=== PATIENT | female | born 1950 | race African-American/Black ===

== ENCOUNTER 2016-12-31 09:37 | Inpatient (IN) | payer BC ==
[~2016-12-31] VITALS: Ht 167.6 cm; Wt 85.3 kg
[2016-12-31] MEDS ORDERED: AMLO5TAB4 PO (09:43)
[2016-12-31 10:55] LABS: HEMATOCRIT. 40.8 % (36.0-48.0); HEMOGLOBIN. 13.6 g/dL (12.0-16.0); MEAN CORPUSCULAR HEMOGLOBIN 26.8 pg (28.0-32.0); MEAN CORPUSCULAR VOLUME 80.2 fL (81.0-99.0); MEAN PLATELET VOLUME 8.5 fl (7.4-10.4); PLATELET 117 x1000/uL (130-400); RED BLOOD CELL COUNT 5.08 mill/uL (4.2-5.4); RED CELL DISTRIBUTION WIDTH 14.4 % (11.6-14.6)
[2016-12-31 11:01] LABS: CHLORIDE 93 mEq/L (98-107)
[2016-12-31 11:09] LABS: CARBON DIOXIDE 25 mEq/L (21-32)
[2016-12-31 11:58] LABS: PLATELET ESTIMATE SLIGHTLY DECREASED
[2016-12-31 12:55] LABS: CLARITY URINE CLOUDY (CLEAR); COLOR URINE DARK YELLOW (YELLOW); GLUCOSE URINE TRACE (NEGATIVE); KETONES URINE TRACE (NEGATIVE); LEUKOCYTE ESTERASE URINE 1+ (NEGATIVE); NITRITE URINE NEGATIVE (NEGATIVE); OCCULT BLOOD URINE 3+ (NEGATIVE); PROTEIN URINE 2+ (NEGATIVE); SPECIFIC GRAVITY URINE 1.024 (1.005-1.030)
[2016-12-31] MEDS ORDERED: SODIUM CHLORIDE 0.9% 1,000 ML IV ONE (14:24)
[2016-12-31] MEDS ORDERED: ACETAMINOPHEN 325MG TABLET PO NR (16:00)
[2016-12-31] MEDS ORDERED: DEXTROSE 50% WATER 50ML SYRINGE IV PRN (19:00)
[2016-12-31] MEDS ORDERED: DIPHENHYDRAMINE 50MG/ML VIAL IV PRN (19:00)
[2016-12-31] MEDS ORDERED: MAGNESIUM 2 G PREMIX 50 ML IV PRN (19:30)
[2016-12-31] MEDS ORDERED: SODIUM CHLORIDE 0.9% 1,000 ML IV SCH (19:30)
[2016-12-31] MEDS ORDERED: CEFTRIAXONE 1 G PREMIX 50 ML IV NR (19:33)
[2016-12-31] MEDS ORDERED: POTASSIUM CHLORIDE 20MEQ/PACKET PO NR (19:45)
[2016-12-31 19:55] LABS: CREATINE KINASE 237 IU/L (26-192)
[2016-12-31] MEDS ORDERED: POTASSIUM CHLORIDE INJ 40 MEQ in DEXT 5% WATER 250 ML IV NR (20:15)
[2016-12-31] MEDS ORDERED: HYDRALAZINE 20MG/ML VIAL IV PRN (20:15)
[2016-12-31] MEDS: MORPHINE SULFATE 2 MG/ML CPJ (NOT FOR IM USE) IV PRN (20:43)
[2016-12-31] MEDS: ONDANSETRON HCL 4MG/2ML VIAL IV PRN (20:44)
[2016-12-31] MEDS: CLONIDINE 0.1MG TABLET PO PRN (20:44)
[2017-01-01] VITALS (7 sets, daily range): BP systolic 128–174; BP diastolic 84–104
[2017-01-01] MEDS ORDERED: HYDR-523 PO (00:53)
[2017-01-01] MEDS ORDERED: ONDA4TAB5 PO (00:53)
[2017-01-01] MEDS ORDERED: P20 PO (00:53)
[2017-01-01] MEDS: ACETAMINOPHEN 325MG TABLET PO PRN (01:46)
[2017-01-01] MEDS ORDERED: METHYLPREDNISOLONE SOD SUCC 125 MG/2 ML VIAL IV NR (02:00)
[2017-01-01] MEDS ORDERED: CEFTRIAXONE 1 G PREMIX 50 ML IV SCH ×2 (03:00→23:00)
[2017-01-01] MEDS: MORPHINE SULFATE 2 MG/ML CPJ (NOT FOR IM USE) IV PRN ×2 (04:37→11:49)
[2017-01-01] MEDS: SODIUM CHLORIDE 0.9% 1,000 ML IV SCH ×4 (04:41→21:00)
[2017-01-01] MEDS: BLOOD SUGAR DIAGNOSTIC STRIP TEST SCH ×4 (06:26→20:56)
[2017-01-01] MEDS: INSULIN LISPRO 100 UNITS/ML SUBCUT SCH ×4 (06:28→21:07)
[2017-01-01 07:01] LABS: HEMATOCRIT. 37.6 % (36.0-48.0); HEMOGLOBIN. 12.6 g/dL (12.0-16.0); MEAN CORPUSCULAR HEMOGLOBIN 26.8 pg (28.0-32.0); MEAN CORPUSCULAR VOLUME 79.9 fL (81.0-99.0); MEAN PLATELET VOLUME 9.1 fl (7.4-10.4); PLATELET 81 x1000/uL (130-400); RED BLOOD CELL COUNT 4.71 mill/uL (4.2-5.4); RED CELL DISTRIBUTION WIDTH 14.2 % (11.6-14.6)
[2017-01-01] MEDS: PANTOPRAZOLE SODIUM 40 MG/VIAL IV SCH (08:52)
[2017-01-01] MEDS: POTASSIUM CHLORIDE 20MEQ TABLET SR PO SCH (08:52)
[2017-01-01] MEDS: AMLODIPINE 5MG TABLET PO SCH ×2 (08:55→21:00)
[2017-01-01 09:36] LABS: PLATELET ESTIMATE DECREASED
[2017-01-01 09:59] LABS: *AMPHETAMINES SCREEN URINE NEGATIVE (NEGATIVE); *BARBITURATES SCREEN URINE NEGATIVE (NEGATIVE); *BENZODIAZEPINES SCREEN URINE NEGATIVE (NEGATIVE); *COCAINE SCREEN URINE NEGATIVE (NEGATIVE); CANNABINOID URINE SCREEN NEGATIVE (NEGATIVE); METHADONE URINE SCREEN NEGATIVE (NEGATIVE); OPIATES URINE SCREEN PRESUMTIVE POSITIVE (NEGATIVE); PHENCYCLIDINE URINE SCREEN NEGATIVE (NEGATIVE)
[2017-01-01] MEDS ORDERED: POTASSIUM CHLORIDE 20MEQ TABLET SR PO SCH (10:00)
[2017-01-01] MEDS ORDERED: VANCOMYCIN 1500MG in DEXTROSE 5% WATER 250ML IV SCH (14:00)
[2017-01-01] MEDS: PIPERACILLIN/TAZ 3.375G PREMIX 50 ML IV SCH ×2 (14:35→21:00)
[2017-01-02] VITALS: BP 138/79
[2017-01-02] MEDS ORDERED: VANCOMYCIN 500 MG PREMIX 100 ML IV SCH (02:00)
[2017-01-02 04:02] VITALS: BP 144/96
[2017-01-02] MEDS: MORPHINE SULFATE 2 MG/ML CPJ (NOT FOR IM USE) IV PRN ×2 (04:04→16:34)
[2017-01-02] MEDS: PIPERACILLIN/TAZ 3.375G PREMIX 50 ML IV SCH ×3 (05:08→21:10)
[2017-01-02] MEDS: SODIUM CHLORIDE 0.9% 1,000 ML IV SCH ×2 (05:08→21:10)
[2017-01-02] MEDS: BLOOD SUGAR DIAGNOSTIC STRIP TEST SCH ×4 (06:39→21:04)
[2017-01-02] MEDS: INSULIN LISPRO 100 UNITS/ML SUBCUT SCH ×4 (06:45→21:00)
[2017-01-02 07:25] LABS: HEMOGLOBIN. 11.9 g/dL (12.0-16.0); MEAN CORPUSCULAR HEMOGLOBIN 26.1 pg (28.0-32.0); MEAN CORPUSCULAR VOLUME 79.2 fL (81.0-99.0); MEAN PLATELET VOLUME 9.8 fl (7.4-10.4); PLATELET 87 x1000/uL (130-400); RED BLOOD CELL COUNT 4.54 mill/uL (4.2-5.4); RED CELL DISTRIBUTION WIDTH 14.5 % (11.6-14.6)
[2017-01-02 07:43] LABS: CARBON DIOXIDE 22 mEq/L (21-32); CHLORIDE 104 mEq/L (98-107); T4 FREE 1.14 ng/dL (0.76-1.46)
[2017-01-02 08:00] VITALS: BP 143/87
[2017-01-02] MEDS: AMLODIPINE 5MG TABLET PO SCH ×2 (08:45→21:10)
[2017-01-02] MEDS: POTASSIUM CHLORIDE 20MEQ TABLET SR PO SCH (08:46)
[2017-01-02] MEDS: PANTOPRAZOLE SODIUM 40 MG/VIAL IV SCH (08:46)
[2017-01-02 12:00] VITALS: BP 129/92
[2017-01-02] MEDS: VANCOMYCIN 1 G PREMIX 200 ML IV SCH (13:37)
[2017-01-02 16:00] VITALS: BP 121/91
[2017-01-02 20:00] VITALS: BP 130/79
[2017-01-03] VITALS: BP 119/83
[2017-01-03 04:00] VITALS: BP 120/78
[2017-01-03] MEDS: PIPERACILLIN/TAZ 3.375G PREMIX 50 ML IV SCH ×3 (05:35→21:13)
[2017-01-03] MEDS: SODIUM CHLORIDE 0.9% 1,000 ML IV SCH ×3 (05:36→14:55)
[2017-01-03] MEDS: INSULIN LISPRO 100 UNITS/ML SUBCUT SCH ×4 (05:54→21:00)
[2017-01-03] MEDS: BLOOD SUGAR DIAGNOSTIC STRIP TEST SCH ×4 (05:54→21:03)
[2017-01-03] MEDS: MORPHINE SULFATE 2 MG/ML CPJ (NOT FOR IM USE) IV PRN (05:56)
[2017-01-03 06:58] LABS: HEMATOCRIT. 36.8 % (36.0-48.0); HEMOGLOBIN. 12.2 g/dL (12.0-16.0); MEAN CORPUSCULAR HEMOGLOBIN 26.1 pg (28.0-32.0); MEAN CORPUSCULAR VOLUME 79.1 fL (81.0-99.0); MEAN PLATELET VOLUME 9.3 fl (7.4-10.4); PLATELET 99 x1000/uL (130-400); RED BLOOD CELL COUNT 4.66 mill/uL (4.2-5.4); RED CELL DISTRIBUTION WIDTH 14.5 % (11.6-14.6)
[2017-01-03 08:00] VITALS: BP 119/78
[2017-01-03] MEDS: PANTOPRAZOLE SODIUM 40 MG/VIAL IV SCH (09:00)
[2017-01-03] MEDS: VANCOMYCIN 1 G PREMIX 200 ML IV SCH (09:00)
[2017-01-03] MEDS: AMLODIPINE 5MG TABLET PO SCH ×2 (09:01→21:13)
[2017-01-03] MEDS: POTASSIUM CHLORIDE 20MEQ TABLET SR PO SCH (09:01)
[2017-01-03] MEDS: ONDANSETRON HCL 4MG/2ML VIAL IV PRN (09:01)
[2017-01-03 12:00] VITALS: BP 128/83
[2017-01-03 16:00] VITALS: BP 120/76
[2017-01-03] MEDS ORDERED: GENTAMICIN 80MG PREMIX 100 ML IV SCH (16:00)
[2017-01-03] MEDS: GENTAMICIN 120MG PREMIX 100 ML IV SCH (17:31)
[2017-01-03] MEDS: ENOXAPARIN 40MG/0.4ML SYR SUBCUT SCH (17:32)
[2017-01-03] MEDS: LEVOFLOXACIN 250MG PREMIX 50 ML IV SCH (18:36)
[2017-01-03 20:00] VITALS: BP 129/93
[2017-01-03 20:02] LABS: PLATELET ESTIMATE DECREASED
[2017-01-04] VITALS: BP 106/76
[2017-01-04] MEDS: MORPHINE SULFATE 2 MG/ML CPJ (NOT FOR IM USE) IV PRN ×2 (02:05→17:28)
[2017-01-04 04:00] VITALS: BP 128/89
[2017-01-04] MEDS: PIPERACILLIN/TAZ 3.375G PREMIX 50 ML IV SCH ×2 (06:08→14:23)
[2017-01-04] MEDS: SODIUM CHLORIDE 0.9% 1,000 ML IV SCH (06:08)
[2017-01-04] MEDS: INSULIN LISPRO 100 UNITS/ML SUBCUT SCH ×4 (06:13→20:35)
[2017-01-04] MEDS: BLOOD SUGAR DIAGNOSTIC STRIP TEST SCH ×4 (06:13→20:35)
[2017-01-04 07:41] LABS: HEMATOCRIT. 38.7 % (36.0-48.0); HEMOGLOBIN. 12.6 g/dL (12.0-16.0); MEAN CORPUSCULAR HEMOGLOBIN 25.9 pg (28.0-32.0); MEAN CORPUSCULAR VOLUME 79.5 fL (81.0-99.0); MEAN PLATELET VOLUME 9.1 fl (7.4-10.4); PLATELET 111 x1000/uL (130-400); RED BLOOD CELL COUNT 4.86 mill/uL (4.2-5.4); RED CELL DISTRIBUTION WIDTH 14.9 % (11.6-14.6)
[2017-01-04 08:00] VITALS: BP 127/86
[2017-01-04 08:12] LABS: CARBON DIOXIDE 21 mEq/L (21-32); CHLORIDE 110 mEq/L (98-107)
[2017-01-04] MEDS: POTASSIUM CHLORIDE 20MEQ TABLET SR PO SCH (08:47)
[2017-01-04] MEDS: AMLODIPINE 5MG TABLET PO SCH ×2 (08:47→20:18)
[2017-01-04] MEDS: PANTOPRAZOLE SODIUM 40 MG/VIAL IV SCH (08:47)
[2017-01-04 12:00] VITALS: BP 127/81
[2017-01-04 13:05] LABS: PLATELET ESTIMATE DECREASED
[2017-01-04 14:19] LABS: NUCLEATED RED BLOOD CELLS 1 /100 WBC
[2017-01-04 14:20] LABS: PLATELET ESTIMATE SLIGHTLY DECREASED
[2017-01-04 16:00] VITALS: BP 133/86
[2017-01-04] MEDS ORDERED: BISACODYL 10MG SUPP PR NR (16:30)
[2017-01-04] MEDS ORDERED: LACTULOSE 20G/30ML UDC PO NR (16:30)
[2017-01-04] MEDS ORDERED: MEROPENEM 500 MG in SODIUM CHLORIDE 0.9% 50 ML IV SCH (17:00)
[2017-01-04] MEDS: ENOXAPARIN 40MG/0.4ML SYR SUBCUT SCH (17:27)
[2017-01-04] MEDS ORDERED: DIATR MEGLU/DIATRIZOATE SOLN 30ML PO NR ×2 (18:30→20:15)
[2017-01-04] MEDS: GENTAMICIN 120MG PREMIX 100 ML IV SCH (18:54)
[2017-01-04 20:00] VITALS: BP 121/93
[2017-01-04] MEDS: LEVOFLOXACIN 250MG PREMIX 50 ML IV SCH (20:19)
[2017-01-05] VITALS: BP 118/81
[2017-01-05] MEDS: SODIUM CHLORIDE 0.9% 1,000 ML IV SCH ×2 (02:17→21:21)
[2017-01-05 04:00] VITALS: BP 137/92
[2017-01-05] MEDS ORDERED: MEROPENEM 500 MG in SODIUM CHLORIDE 0.9% 50 ML IV SCH (05:00)
[2017-01-05] MEDS ORDERED: DIATR MEGLU/DIATRIZOATE SOLN 30ML PO NR (06:00)
[2017-01-05] MEDS: BLOOD SUGAR DIAGNOSTIC STRIP TEST SCH ×4 (06:50→21:00)
[2017-01-05] MEDS: INSULIN LISPRO 100 UNITS/ML SUBCUT SCH ×4 (06:50→21:00)
[2017-01-05 07:29] LABS: HEMATOCRIT. 39.4 % (36.0-48.0); HEMOGLOBIN. 12.7 g/dL (12.0-16.0); MEAN CORPUSCULAR HEMOGLOBIN 25.6 pg (28.0-32.0); MEAN CORPUSCULAR VOLUME 79.2 fL (81.0-99.0); MEAN PLATELET VOLUME 8.6 fl (7.4-10.4); PLATELET 125 x1000/uL (130-400); RED BLOOD CELL COUNT 4.98 mill/uL (4.2-5.4); RED CELL DISTRIBUTION WIDTH 14.9 % (11.6-14.6)
[2017-01-05 08:00] VITALS: BP 130/79
[2017-01-05] MEDS: POTASSIUM CHLORIDE 20MEQ TABLET SR PO SCH (08:19)
[2017-01-05] MEDS: AMLODIPINE 5MG TABLET PO SCH ×2 (08:19→20:02)
[2017-01-05] MEDS: PANTOPRAZOLE SODIUM 40 MG/VIAL IV SCH (08:19)
[2017-01-05] MEDS ORDERED: IOHEXOL-300 100 ML BOTTLE ONE (09:24)
[2017-01-05 12:00] VITALS: BP 132/87
[2017-01-05 13:36] LABS: PLATELET ESTIMATE SLIGHTLY DECREASED
[2017-01-05] MEDS: PIPERACILLIN/TAZ 3.375G PREMIX 50 ML IV SCH ×2 (14:42→21:20)
[2017-01-05 16:00] VITALS: BP 136/84
[2017-01-05] MEDS: ENOXAPARIN 40MG/0.4ML SYR SUBCUT SCH (17:46)
[2017-01-05] MEDS: ACETAMINOPHEN 325MG TABLET PO PRN ×2 (17:46→21:20)
[2017-01-05 19:59] VITALS: BP 107/73
[2017-01-06 00:28] VITALS: BP 116/82
[2017-01-06 01:36] LABS: GLUCOSE URINE NEGATIVE (NEGATIVE); KETONES URINE NEGATIVE (NEGATIVE); LEUKOCYTE ESTERASE URINE 1+ (NEGATIVE); NITRITE URINE NEGATIVE (NEGATIVE); OCCULT BLOOD URINE 2+ (NEGATIVE); PH URINE 5.5 (4.5-8.0); PROTEIN URINE TRACE (NEGATIVE); SPECIFIC GRAVITY URINE 1.026 (1.005-1.030); UROBILINOGEN URINE 0.2 E.U./dL (0.2-1.0)
[2017-01-06 02:07] LABS: CLARITY URINE SL HAZY (CLEAR); COLOR URINE YELLOW (YELLOW)
[2017-01-06] MEDS: PIPERACILLIN/TAZ 3.375G PREMIX 50 ML IV SCH ×4 (03:32→20:50)
[2017-01-06 04:00] VITALS: BP 120/80
[2017-01-06 05:32] LABS: PARTIAL THROMBOPLASTIN TIME 29.6 sec (23.4-31.0); PROTHROMBIN TIME 10.7 sec (9.4-11.6)
[2017-01-06 06:08] LABS: CHLORIDE 107 mEq/L (98-107)
[2017-01-06] MEDS: BLOOD SUGAR DIAGNOSTIC STRIP TEST SCH ×4 (06:11→20:48)
[2017-01-06] MEDS: INSULIN LISPRO 100 UNITS/ML SUBCUT SCH ×4 (06:11→20:47)
[2017-01-06 06:12] LABS: CARBON DIOXIDE 32 mEq/L (21-32)
[2017-01-06 08:00] VITALS: BP 143/96
[2017-01-06] MEDS: SODIUM CHLORIDE 0.9% 1,000 ML IV SCH (09:48)
[2017-01-06] MEDS: PANTOPRAZOLE SODIUM 40 MG/VIAL IV SCH (09:48)
[2017-01-06 09:49] LABS: HEMATOCRIT. 37.4 % (36.0-48.0); HEMOGLOBIN. 12.3 g/dL (12.0-16.0); MEAN CORPUSCULAR HEMOGLOBIN 25.7 pg (28.0-32.0); MEAN CORPUSCULAR VOLUME 78.5 fL (81.0-99.0); MEAN PLATELET VOLUME 8.1 fl (7.4-10.4); PLATELET 177 x1000/uL (130-400); RED BLOOD CELL COUNT 4.76 mill/uL (4.2-5.4); RED CELL DISTRIBUTION WIDTH 14.5 % (11.6-14.6)
[2017-01-06] MEDS: AMLODIPINE 5MG TABLET PO SCH ×2 (09:49→20:49)
[2017-01-06] MEDS: POTASSIUM CHLORIDE 20MEQ TABLET SR PO SCH (09:49)
[2017-01-06 12:00] VITALS: BP 130/82
[2017-01-06] MEDS: ACETAMINOPHEN 325MG TABLET PO PRN (13:18)
[2017-01-06] MEDS: CLOTRIMAZOLE 10MG TROCHE MM SCH ×2 (15:32→20:49)
[2017-01-06 16:00] VITALS: BP 120/72
[2017-01-06] MEDS: ENOXAPARIN 40MG/0.4ML SYR SUBCUT SCH (18:11)
[2017-01-06 20:00] VITALS: BP 122/79
[2017-01-07] VITALS: BP 136/84
[2017-01-07] MEDS: PIPERACILLIN/TAZ 3.375G PREMIX 50 ML IV SCH ×3 (02:47→14:28)
[2017-01-07] MEDS: ACETAMINOPHEN 325MG TABLET PO PRN ×2 (02:48→13:44)
[2017-01-07] MEDS: BLOOD SUGAR DIAGNOSTIC STRIP TEST SCH ×4 (05:38→20:53)
[2017-01-07 06:35] LABS: HEMATOCRIT. 34.4 % (36.0-48.0); HEMOGLOBIN. 11.3 g/dL (12.0-16.0); MEAN CORPUSCULAR HEMOGLOBIN 25.9 pg (28.0-32.0); MEAN CORPUSCULAR VOLUME 78.7 fL (81.0-99.0); MEAN PLATELET VOLUME 8.3 fl (7.4-10.4); PLATELET 206 x1000/uL (130-400); RED BLOOD CELL COUNT 4.37 mill/uL (4.2-5.4); RED CELL DISTRIBUTION WIDTH 14.5 % (11.6-14.6)
[2017-01-07] MEDS: INSULIN LISPRO 100 UNITS/ML SUBCUT SCH ×4 (06:36→20:53)
[2017-01-07 08:00] VITALS: BP 118/88
[2017-01-07] MEDS: PANTOPRAZOLE SODIUM 40 MG/VIAL IV SCH (08:30)
[2017-01-07] MEDS: ONDANSETRON HCL 4MG/2ML VIAL IV PRN (08:31)
[2017-01-07] MEDS: AMLODIPINE 5MG TABLET PO SCH ×2 (08:31→20:55)
[2017-01-07] MEDS: POTASSIUM CHLORIDE 20MEQ TABLET SR PO SCH (08:31)
[2017-01-07] MEDS: CLOTRIMAZOLE 10MG TROCHE MM SCH ×4 (08:31→20:55)
[2017-01-07 12:00] VITALS: BP 139/92
[2017-01-07 12:27] LABS: PLATELET ESTIMATE NORMAL
[2017-01-07 14:57] LABS: PLATELET ESTIMATE NORMAL
[2017-01-07] MEDS ORDERED: HYDROCODONE/ACETAMINOPHEN 5/325MG TABLET PO PRN (15:15)
[2017-01-07 16:00] VITALS: BP 100/62
[2017-01-07 20:00] VITALS: BP 135/87
[2017-01-07] MEDS: OMEPRAZOLE 20MG CAPSULE EXTENDED RELEASE PO SCH (20:55)
[2017-01-08] VITALS (8 sets, daily range): BP systolic 126–156; BP diastolic 77–97
[2017-01-08] MEDS: ACETAMINOPHEN 325MG TABLET PO PRN ×3 (00:17→19:38)
[2017-01-08] MEDS: CLONIDINE 0.1MG TABLET PO PRN (00:17)
[2017-01-08] MEDS: BLOOD SUGAR DIAGNOSTIC STRIP TEST SCH ×2 (05:36→11:38)
[2017-01-08] MEDS: INSULIN LISPRO 100 UNITS/ML SUBCUT SCH ×2 (05:37→12:02)
[2017-01-08] MEDS: OMEPRAZOLE 20MG CAPSULE EXTENDED RELEASE PO SCH (06:12)
[2017-01-08 06:19] LABS: HEMATOCRIT. 33.8 % (36.0-48.0); HEMOGLOBIN. 11.2 g/dL (12.0-16.0); MEAN CORPUSCULAR HEMOGLOBIN 26.1 pg (28.0-32.0); MEAN CORPUSCULAR VOLUME 78.7 fL (81.0-99.0); MEAN PLATELET VOLUME 7.7 fl (7.4-10.4); PLATELET 254 x1000/uL (130-400); RED BLOOD CELL COUNT 4.29 mill/uL (4.2-5.4); RED CELL DISTRIBUTION WIDTH 14.4 % (11.6-14.6)
[2017-01-08] MEDS: POTASSIUM CHLORIDE 20MEQ TABLET SR PO SCH (08:19)
[2017-01-08] MEDS: AMLODIPINE 5MG TABLET PO SCH (08:20)
[2017-01-08] MEDS: CLOTRIMAZOLE 10MG TROCHE MM SCH ×2 (08:20→12:02)
[2017-01-08 16:19] LABS: PLATELET ESTIMATE NORMAL
[2017-01-08] MEDS ORDERED: CEFEPIME 1,000 MG in DEXTROSE 5% WATER 50 ML IV SCH (18:00)
[2017-01-08] MEDS ORDERED: VANCOMYCIN 750 MG PREMIX 150 ML IV SCH (18:00)
== END 2017-01-08 21:58 | DRG 682 ==
LOC: ER 09:48 → 8WST 13:34 → ENRESERV 19:32 → EDBEDREQSVC 21:18 → ENRESERV 21:24
PROVIDERS: ADMIT Internal Medicine; ATTEND Internal Medicine
DX: N17.9 Acute kidney failure, unspecified (principal); E43 Unspecified severe protein-calorie malnutrition; G93.40 Encephalopathy, unspecified; K85.90 Acute pancreatitis without necrosis or infection, unspecified; B37.0 Candidal stomatitis; D69.6 Thrombocytopenia, unspecified; E87.1 Hypo-osmolality and hyponatremia; N39.0 Urinary tract infection, site not specified; E86.0 Dehydration; I10 Essential (primary) hypertension; E87.6 Hypokalemia; M06.4 Inflammatory polyarthropathy; M75.102 Unspecified rotator cuff tear or rupture of left shoulder, not specified as traumatic; M19.012 Primary osteoarthritis, left shoulder; R26.9 Unspecified abnormalities of gait and mobility; E11.9 Type 2 diabetes mellitus without complications; S43.439A Superior glenoid labrum lesion of unspecified shoulder, initial encounter; T38.0X5A Adverse effect of glucocorticoids and synthetic analogues, initial encounter; Z96.643 Presence of artificial hip joint, bilateral; D72.825 Bandemia; Z68.30 Body mass index [BMI] 30.0-30.9, adult; Z79.899 Other long term (current) drug therapy; Y92.89 Other specified places as the place of occurrence of the external cause; Z82.49 Family history of ischemic heart disease and other diseases of the circulatory system
CPT/HCPCS: 36415; 70450; 71010; 73030; 73221; 74177; 80048; 80053; 80305; 81001; 82550; 82962; 83036; 83690; 83735; 84439; 84443; 84550; 85025; 85610; 85651; 85730; 87015; 87040; 87045; 87086; 87427; 87449; 93970; 96361; 96365; 96375; 97116; 97162; 97166; 97530; 99285; C1893; C9113; J0360; J0692; J0696; J1580; J1650; J1815; J1956; J2185; J2270; J2405; J2543; J2930; J3370; J3480; J7030; J7060; Q9963; Q9967